=== PATIENT | female | born 1930 | race Caucasian/White ===

== ENCOUNTER → 2016-04-25 | Outpatient (CLI) | payer OTHER ==
--- NOTE | 2016-04-25 16:20 | ECHOCARDIOGRAM REPORT ---
*NOTICE TO RECEIVING DEMOCRAT AGENCY This information is strictly Confidential and protected under [place] law. [place] law prohibits you from making any further disclosure of this information unless further disclosure is expressly permitted by the written consent of the person to whom it pertains or is authorized by law. A general authorization for the release of medical or other information is not sufficient for this purpose. Hospital accepts no responsibility if the information is made available to any other person, INCLUDING THE PATIENT. Interpretation Summary * Name: GARY ALVARENGA Study Date: 04/25/2016 02:26 PM BP: 163/46 mmHg * Patient Location: [facility] HR: 65 * : 1930 (M/d/yyyy) Gender: Female Height: 68 in * Age: 85 yrs Ethnicity: [place] Weight: 220 lb * Ordering Physician: Pedrito Schroeder * Referring Physician: Cal Garcia D.O. * Performed By: Maria D Garcia * * Reason For Study: DIZZINESS, MURMUR * BSA: 2.1 m2 * -- Conclusions -- * Left ventricular systolic function is normal. * No regional wall motion abnormalities noted. * Ejection Fraction = 60-65%. * There is mild concentric left ventricular hypertrophy. * There is moderate mitral regurgitation. * There is mild tricuspid regurgitation. Procedure Details * A complete two-dimensional transthoracic echocardiogram was performed (2D, M-mode, Doppler and color flow Doppler). Left Ventricle * The left ventricle is normal in size. * There is mild concentric left ventricular hypertrophy. * Ejection Fraction = 60-65%. * Left ventricular systolic function is normal. * No regional wall motion abnormalities noted. Right Ventricle * The right ventricle is not well visualized. * The right ventricular systolic function is normal as assessed by tricuspid annular plane systolic excursion (TAPSE) (normal >1.5 cm). Atria * The left atrium is mildly dilated. * The right atrium is mildly dilated. * No ASD detected; PFO is not assessed. * Lipomatous hypertrophy of the interatrial septum is noted. Mitral Valve * The mitral valve is grossly normal. * There is no mitral valve stenosis. * There is moderate mitral regurgitation. * Eccentric regurgitant jet directed anteriorly. Tricuspid Valve * The tricuspid valve is not well visualized, but is grossly normal. * There is mild tricuspid regurgitation. Aortic Valve * The aortic valve is not well visualized. * The aortic valve opens well. * No hemodynamically significant valvular aortic stenosis. * There is no significant aortic regurgitation. Pulmonic Valve * The pulmonary valve is not well seen, but the Doppler examination is normal without significant regurgitation or stenosis. Great Vessels * The aortic root is normal size. * The pulmonary is not well visualized. Pericardium/Pleural * There is no pericardial effusion. Great Vessels * Normal inferior vena cava size and collapsability with sniff indicates a normal right atrial pressure of 3 mmHg Left Ventricular Diastolic Function * Diastolic dysfunction, Grade II (pseudonormalization pattern). MMode 2D Measurements and Calculations IVSd 1.3 cm IVSs 1.8 cm LVIDd 4.4 cm LVIDs 2.4 cm LVPWd 1.1 cm LVPWs 2.0 cm IVS/LVPW 1.2 FS 45.9 % EDV(Teich) 89.3 ml ESV(Teich) 20.2 ml EF(Teich) 77.4 % EDV(cubed) 87.2 ml ESV(cubed) 13.8 ml EF(cubed) 84.1 % % IVS thick 36.7 % % LVPW thick 82.5 % LV mass(C)d 190.6 grams LV mass(C)dI 89.6 grams/m\S\2 LV mass(C)s 182.1 grams LV mass(C)sI 85.6 grams/m\S\2 SV(Teich) 69.1 ml SI(Teich) 32.5 ml/m\S\2 SV(cubed) 73.4 ml SI(cubed) 34.5 ml/m\S\2 ACS 0.56 cm LA dimension 4.2 cm asc Aorta Diam 3.1 cm LVOT diam 1.7 cm LVOT area 2.3 cm\S\2 LVAd ap4 23.1 cm\S\2 LVLd ap4 7.5 cm EDV(MOD-sp4) 58.8 ml EDV(sp4-el) 60.7 ml LVAs ap4 8.4 cm\S\2 LVLs ap4 4.8 cm ESV(MOD-sp4) 12.8 ml ESV(sp4-el) 12.6 ml EF(MOD-sp4) 78.2 % EF(sp4-el) 79.3 % LVAd ap2 22.3 cm\S\2 LVLd ap2 6.9 cm EDV(MOD-sp2) 59.8 ml EDV(sp2-el) 61.4 ml LVAs ap2 8.5 cm\S\2 LVLs ap2 5.3 cm ESV(MOD-sp2) 13.1 ml ESV(sp2-el) 11.6 ml EF(MOD-sp2) 78.1 % EF(sp2-el) 81.2 % LVLd %diff -8.55 % EDV(MOD-bp) 62.8 ml LVLs %diff 9.9 % ESV(MOD-bp) 12.6 ml EF(MOD-bp) 79.9 % SV(MOD-sp4) 46.0 ml SI(MOD-sp4) 21.6 ml/m\S\2 SV(MOD-sp2) 46.7 ml SI(MOD-sp2) 22.0 ml/m\S\2 SV(MOD-bp) 50.1 ml SI(MOD-bp) 23.6 ml/m\S\2 SV(sp4-el) 48.1 ml SI(sp4-el) 22.6 ml/m\S\2 SV(sp2-el) 49.9 ml SI(sp2-el) 23.4 ml/m\S\2 Doppler Measurements and Calculations MV E max rhiannon 114.9 cm/sec MV A max rhiannon 104.6 cm/sec MV E/A 1.1 MV V2 max 135.8 cm/sec MV max PG 7.4 mmHg MV V2 mean 65.0 cm/sec MV mean PG 2.1 mmHg MV V2 VTI 50.4 cm MV dec time 0.26 sec Ao V2 max 238.4 cm/sec Ao max PG 22.7 mmHg Ao max PG (full) 17.0 mmHg Ao V2 mean 138.2 cm/sec Ao mean PG 9.6 mmHg Ao V2 VTI 54.4 cm DAWNA(V,A) 1.1 cm\S\2 DAWNA(V,D) 1.1 cm\S\2 LV V1 max PG 5.7 mmHg LV V1 max 119.7 cm/sec MR max rhiannon 485.7 cm/sec MR max PG 94.5 mmHg PA V2 max 83.1 cm/sec PA max PG 2.8 mmHg PI end-d rhiannon 121.3 cm/sec TR max rhiannon 260.0 cm/sec
== END | disposition home or self-care (01) ==
LOC: C.CPL 13:09
PROVIDERS: ATTEND Neuromusculoskeletal Medicine & OMM
DX: R42 Dizziness and giddiness (principal); R01.1 Cardiac murmur, unspecified

== ENCOUNTER → 2016-05-03 | Outpatient (CLI) | payer OTHER ==
[2016-05-03 17:55] LABS: BASO % 0.4 %; BASO ABS # 0.03 K/uL (0-0.2); COMPLETE YES; EOS % 1.9 %; HEMATOCRIT 42.5 % (37-47); IG% 0.4 %; LYMPH ABS # 1.74 K/uL (1.2-3.4); MEAN CELL VOLUME 88.7 fL (80-100); MEAN CORPUSCULAR HEMOGLOBIN 29.9 pg (25-34); MEAN CORPUSCULAR HGB CONC 33.6 g/dl (32-36); MEAN PLATELET VOLUME 11.2 fL (7.4-10.4); MONO % 9.8 %; NEUT % 65.5 %; PLATELET COUNT 166 K/uL (130-400); RED BLOOD COUNT 4.79 M/uL (4.2-5.4); WHITE BLOOD COUNT 7.92 K/uL (4.8-10.8)
[2016-05-03 18:17] LABS: ALT/SGPT 26 U/L (12-78); BLOOD UREA NITROGEN 23 mg/dl (7-18); BUN/CREATININE RATIO 20.7 (10-20); CALCIUM 9.4 mg/dl (8.5-10.1); CARBON DIOXIDE 29 mmol/L (21-32); CHLORIDE 108 mmol/L (98-107); CHOLESTEROL 171 mg/dl (0-200); GLUCOSE 89 mg/dl (70-99); POTASSIUM 4.4 mmol/L (3.5-5.1); SODIUM 145 mmol/L (136-145)
[2016-05-03 18:28] LABS: ALB/GLOB RATIO 1.3 (0.9-2); ALKALINE PHOSPHATASE 73 U/L (45-117); AST/SGOT 24 U/L (15-37); CHOLESTEROL/HDL RATIO 4.2; HDL CHOLESTEROL 41 mg/dl; LDL CHOLESTEROL CALCULATED 97 mg/dl; TRIGLYCERIDES 163 mg/dl (0-150); VERY LOW DENSITY LIPOPROT CALC 33 mg/dl
== END | disposition home or self-care (01) ==
LOC: C.LABPBG 15:30
PROVIDERS: ATTEND Neuromusculoskeletal Medicine & OMM
DX: Z00.00 Encounter for general adult medical examination without abnormal findings (principal)

== ENCOUNTER → 2017-05-02 | Outpatient (CLI) | payer OTHER ==
[2017-05-02 12:21] LABS: HEMATOCRIT 41.1 % (37-47); MEAN CELL VOLUME 86.7 fL (80-100); MEAN CORPUSCULAR HEMOGLOBIN 29.5 pg (25-34); MEAN CORPUSCULAR HGB CONC 34.1 g/dl (32-36); MEAN PLATELET VOLUME 10.5 fL (7.4-10.4); PLATELET COUNT 157 K/uL (130-400); RED CELL DISTRIBUTION WIDTH CV 13.6 % (11.5-14.5); RED CELL DISTRIBUTION WIDTH SD 43.3 fL (36.4-46.3); WHITE BLOOD COUNT 5.82 K/uL (4.8-10.8)
[2017-05-02 13:04] LABS: BLOOD UREA NITROGEN 22 mg/dl (7-18); CALCIUM 9.1 mg/dl (8.5-10.1); CARBON DIOXIDE 29 mmol/L (21-32); CHOLESTEROL 167 mg/dl (0-200); CREATININE 0.86 mg/dl (0.60-1.20); GLUCOSE 86 mg/dl (70-99); POTASSIUM 4.3 mmol/L (3.5-5.1); SODIUM 140 mmol/L (136-145)
[2017-05-02 13:08] LABS: LDL CHOLESTEROL CALCULATED 104 mg/dl
== END | disposition home or self-care (01) ==
LOC: C.LABPBG 10:23
PROVIDERS: ATTEND Family Medicine
DX: I10 Essential (primary) hypertension (principal); N32.81 Overactive bladder; N18.3 Chronic kidney disease, stage 3 (moderate); Z13.220 Encounter for screening for lipoid disorders